=== PATIENT | male | born 1990 ===

== ENCOUNTER 2017-12-10 11:18 | Day surgery (SDC) | payer OTHER ==
[~2017-12-10 11:18] MED LIST: CEFAZOLIN 2 GM/D5W RTU 2 GM/50 ML RTUPB IV ONE; CEFAZOLIN 2 GM/D5W RTU 2 GM/50 ML RTUPB IV PRN
[2017-12-10 12:13] LABS: HEMATOCRIT 42.3 % (37.9-51.0); HEMOGLOBIN 15.1 g/dL (13.5-17.0); MEAN CORPUSCULAR HEMOGLOBIN 30.5 pg (27.0-33.4); MEAN CORPUSCULAR HGB CONC 35.6 g/dL (32.0-36.0); MEAN CORPUSCULAR VOLUME 86 fl (80-97); PLATELET COUNT 142 10^3/uL (150-450); RED BLOOD COUNT 4.94 10^6/uL (4.35-5.55); RED CELL DISTRIBUTION WIDTH 12.4 % (11.5-14.0); WHITE BLOOD COUNT 2.5 10^3/uL (4.0-10.5)
[2017-12-10 12:24] LABS: APPEARANCE,URINE CLEAR; BILIRUBIN,URINE NEGATIVE (NEGATIVE); COLOR,URINE YELLOW; GLUCOSE, URINE NEGATIVE (NEGATIVE); KETONES,URINE NEGATIVE (NEGATIVE); LEUKOCYTE ESTERASE,URINE NEGATIVE (NEGATIVE); NITRITE,URINE NEGATIVE (NEGATIVE); PROTEIN,URINE NEGATIVE (NEGATIVE); URINE SPECIFIC GRAVITY 1.015; UROBILINOGEN,URINE NEGATIVE mg/dL (<2.0)
--- NOTE | 2017-12-10 12:26 | RADIOLOGY REPORT (SQ) ---
EXAM DESCRIPTION: CHEST SINGLE VIEW COMPLETED DATE/TIME: 12/10/2017 12:03 pm REASON FOR STUDY: PREOP COMPARISON: None. EXAM PARAMETERS: NUMBER OF VIEWS: One view. TECHNIQUE: Single frontal radiographic view of the chest acquired. RADIATION DOSE: NA LIMITATIONS: None. FINDINGS: LUNGS AND PLEURA: No opacities, masses or pneumothorax. No pleural effusion. MEDIASTINUM AND HILAR STRUCTURES: No masses. Contour normal. HEART AND VASCULAR STRUCTURES: Heart normal in size. Normal vasculature. BONES: No acute findings. HARDWARE: None in the chest. OTHER: No other significant finding. IMPRESSION: NO ACUTE RADIOGRAPHIC FINDING IN THE CHEST. TECHNICAL DOCUMENTATION: JOB ID: [id number] [employer] All Rights Reserved Reading location - IP/workstation name: [email or web address]
[2017-12-10 12:41] LABS: ANION GAP 12 (5-19); BLOOD UREA NITROGEN 22 mg/dL (7-20); CALCIUM 10.1 mg/dL (8.4-10.2); CARBON DIOXIDE 28 mmol/L (22-30); CHLORIDE 102 mmol/L (98-107); GLUCOSE 85 mg/dL (75-110); POTASSIUM 4.6 mmol/L (3.6-5.0); SODIUM 142.4 mmol/L (137-145)
[2017-12-10] MEDS ORDERED: SCOPOLAMINE HYDROBROMIDE 1.5 MG PATCH.TD72 ONE (13:09)
[2017-12-10] MEDS ORDERED: FAMOTIDINE INJ/PF 20 MG/2 ML SDV IV ONE (13:09)
[2017-12-10] MEDS ORDERED: BUPIVACAINE HCL 0.5 % INJ/PF 30 ML SDV ONE (13:10)
[2017-12-10] MEDS ORDERED: ONDANSETRON HCL INJ/PF 4 MG/2 ML SDV ONE (13:27)
[2017-12-10] MEDS ORDERED: HYDROMORPHONE HCL INJ/PF 2 MG/ML AMPULE ONE (13:27)
[2017-12-10] MEDS ORDERED: MIDAZOLAM 2 MG/2 ML INJ ONE (13:27)
[2017-12-10] MEDS ORDERED: PROPOFOL INJ 200 MG/20 ML VIAL IV ONE (13:28)
[2017-12-10] MEDS ORDERED: GLYCOPYRROLATE 1 MG/5 ML SYRINGE ONE (13:47)
[2017-12-10] MEDS ORDERED: FENTANYL CITRATE INJ/PF 100 MCG/2 ML AMPUL IV PRN ×3 (14:04)
[2017-12-10] MEDS ORDERED: ONDANSETRON HCL INJ/PF 4 MG/2 ML SDV IV PRN ×2 (14:04→14:32)
[2017-12-10] MEDS ORDERED: DIPHENHYDRAMINE HCL 50 MG/ML VIAL IV PRN (14:04)
[2017-12-10] MEDS ORDERED: MEPERIDINE HCL/PF INJ 25 MG/1 ML DISP.SYRIN IV PRN (14:04)
[2017-12-10] MEDS ORDERED: KETOROLAC TROMETHAMINE INJ/PF 30 MG/1 ML SDV IV PRN (14:32)
--- NOTE | 2017-12-10 14:33 | Discharge Summary ---
Discharge Summary (SDC) - Discharge Final Diagnosis: Painful Hardware Right Wrist Date of Surgery: 12/10/17 Discharge Date: 12/10/17 Condition: Good Treatment or Instructions: Schedule Follow Up w/ Dr. Nelson Valencia @ [facility] to be seen in 10-14 days or as scheduled [place]: [place]: [place]: Ice and elevate Keep splint clean/dry/intact. If your fingers become numb please unwrap the Guero wrap but leave the splint in place, if the sensation does not return within 30 minutes please return to the emergency department. May begin finger range of motion attempting to make full fist. Please use ibuprofen (Motrin or Advil) 600-800 mg every 8 hours as needed for pain or fever DO NOT TAKE w/ TORADOL may use once TORADOL complete. You may also use acetaminophen (Tylenol) 1000 mg every 4-6 hours as needed for pain or fever. Please be aware that many medications contain acetaminophen, do not exceed a total of 1000 mg of acetaminophen every 6 hours. Stool softener of choice when on pain medication. Prescriptions: Ketorolac Tromethamine [Toradol 10 mg Tablet] 10 mg PO Q8HP PRN #12 tablet PRN Reason: Ibuprofen 800 mg PO Q8 PRN #30 tablet PRN Reason:
--- NOTE | 2017-12-10 14:39 | Operative Report ---
Operative Report DATE OF SURGERY: 12/10/17 PREOPERATIVE DIAGNOSIS: Painful Hardware Right Wrist POSTOPERATIVE DIAGNOSIS: Same OPERATION: Removal Deep hardware Right Wrist w/ Ulnar Neurolysis placement of Axogen nerve wrap SURGEON: OTIS VO ANESTHESIA: GA COMPLICATIONS: None ESTIMATED BLOOD LOSS: minimal PROCEDURE: Indication for above procedure: 27-year-old male who sustained a scapholunate injury of his wrist. He underwent scapholunate repair which she did well with unfortunately 1 of the pins broke w/in the bone and ultimately migrated. He began having significant discomfort and pain. Radiographs demonstrate a migrated hardware. At that point we discussed treatment options given patient's ulnar neuropathy preop decision was made to proceed with operative excision. Procedure In Detail: Patient was seen and evaluated in the preoperative holding area. The upper extremity was initialized and marked. Patient received 2g of Ancef IV for bacterial prophylaxis. Patient was taken back to the operative room where transferred to the operative table and placed under general anesthesia. Once they were adequately anesthetized a nonsterile tourniquet was placed on the upper extremity. A surgical team debriefing was performed ensuring all instrumentation was available, the surgical procedure was discussed with possible concerns reviewed. The upper extremity was prepped with chlorhexidine and alcohol and draped in a sterile fashion. A timeout was done identifying correct patient, procedure and extremity everyone in attendance agree with this and verbalized no concerns. The extremity was elevated the tourniquet was inflated to 250 mmHg. Small 1 cm incision was made along the ulnar aspect of the wrist where the palpable pin was located. Blunt dissection was performed to isolate the pin which was then removed from the deep tissues. This area was copiously irrigated with normal saline and closed with 4-0 nylon suture. Given patient's preoperative ulnar nerve symptoms I then proceeded with exploration of the ulnar nerve at the location of the previous pin. A longitudinal skin incision was made volarly just radial to the pisiform and proximal to the wrist flexion crease. Blunt dissection was performed. A peripheral veins were coagulated with bipolar cautery. The FCU tendon was identified. I then identified the ulnar neurovascular bundle first the ulnar artery. The ulnar nerve was then isolated from the ulnar artery and neurolysed proximal to the level of injury and distal to the level of injury. The nerve stimulator was then utilized to confirm functioning ulnar nerve. There was intact intrinsic and adductor pollicis function. At the level of injury I further dissected the surrounding soft tissues there was no evidence of discontinuity however there was there was splaying of the nerve fascicles. No neuroma was appreciated. There was hyperemia of the nerve at this level however. At the level of nerve injury a 10 x 40 mm Axogen was contoured to cover the nerve. It was secured with horizontal mattress 6-0 nylon suture. The tourniquet was then deflated. Any peripheral bleeding was controlled with bipolar cautery. The wound was copiously irrigated with normal saline. Skin incision was closed with running 4-0 horizontal mattress suture. The wound was dressed with Xeroform 4 x 4's and patient was placed in a volar resting splint. Sponge counts, instrument counts, needle counts counts were correct. Patient was then awoken from anesthesia. Transferred from the operating room table to the operating room stretcher. There was no intraoperative complications patient tolerated procedure well stable to PACU. Postoperative plan: Patient will follow-up the office in 2 weeks at which point we will proceed with suture removal and placement in a removable brace.
[2017-12-10 16:37] VITALS: BP 126/70
--- NOTE | 2017-12-10 22:37 | EKG REPORT ---
SEVERITY:- NORMAL ECG - SINUS RHYTHM : Confirmed by: Queenie Drew MD 10-Dec-2017 22:36:34
== END 2017-12-10 16:45 | disposition home or self-care (01) ==
LOC: OROUT 11:18
PROVIDERS: ATTEND Orthopaedic Surgery
DX: T84.84XA Pain due to internal orthopedic prosthetic devices, implants and grafts, initial encounter (principal); Y83.8 Other surgical procedures as the cause of abnormal reaction of the patient, or of later complication, without mention of misadventure at the time of the procedure; G56.21 Lesion of ulnar nerve, right upper limb; Z87.891 Personal history of nicotine dependence; Z88.2 Allergy status to sulfonamides; Z79.1 Long term (current) use of non-steroidal anti-inflammatories (NSAID); Z79.899 Other long term (current) drug therapy
CPT/HCPCS: 36415; 85027; 80048; 81001; 71045; 93005; 93010; 20680; 64719; 64999; C9353; J2250; J3490 ×2; J1170; J2405; J2704; S0028; J0690; 1830